=== PATIENT | male | born 2000 | race Hispanic/Latino ===

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

== ENCOUNTER 2023-02-03 17:30 | Outpatient (CLI) | payer BC, OTHER | END 2023-02-03 17:31 | disposition home or self-care (01) | LOC: EDBD → SLEEPLAB 17:30 | PROVIDERS: ATTEND Nurse Practitioner Family | DX: G47.33 Obstructive sleep apnea (adult) (pediatric) (principal); R53.83 Other fatigue; E11.9 Type 2 diabetes mellitus without complications; E66.9 Obesity, unspecified; R06.83 Snoring; R35.1 Nocturia; E78.5 Hyperlipidemia, unspecified; Z68.43 Body mass index [BMI] 50.0-59.9, adult | CPT/HCPCS: 95800 ==

== ENCOUNTER 2023-03-16 19:00 | Outpatient (CLI) | payer BC | END 2023-03-16 19:01 | disposition home or self-care (01) | LOC: SLEEPLAB 19:00 | PROVIDERS: ATTEND Nurse Practitioner Family | DX: G47.33 Obstructive sleep apnea (adult) (pediatric) (principal); E11.9 Type 2 diabetes mellitus without complications; R06.83 Snoring; R35.1 Nocturia; E66.9 Obesity, unspecified; R53.83 Other fatigue | CPT/HCPCS: 95811 ==

== ENCOUNTER 2023-04-03 02:04 | Emergency (ER) | payer BC | END 2023-04-03 05:41 | disposition home or self-care (01) | LOC: ERS 02:04 | DX: L02.211 Cutaneous abscess of abdominal wall (principal); I10 Essential (primary) hypertension | CPT/HCPCS: 10060 ==